=== PATIENT | male | born 1960 | race Asian ===

== ENCOUNTER 2018-12-30 10:16 | Emergency (ER) | payer OTHER ==
[2018-12-30] MEDS: KETOROLAC 60 MG INJ IM (11:58)
[2018-12-30] MEDS: traMADol 50 MG TAB PO (11:59)
[2018-12-30 12:28] LABS: URIC ACID 3.1 mg/dl (3.1-7.9)
== END 2018-12-30 14:10 | disposition home or self-care (01) ==
LOC: FTE 10:16
DX: M25.462 Effusion, left knee (principal); I10 Essential (primary) hypertension; F17.210 Nicotine dependence, cigarettes, uncomplicated
CPT/HCPCS: 73562; 84560; 96372; 99284-25

== ENCOUNTER 2019-03-09 08:53 | Day surgery (SDC) | payer OTHER ==
[2019-03-09] MEDS ORDERED: LIDOCAINE 4% SOLUTION 50 ML BTL (10:08)
[2019-03-09] MEDS ORDERED: FENTAnyl 50 MCG/ML VIAL (10:53)
[2019-03-09] MEDS ORDERED: MIDAZOLAM 1 MG/ML 2 ML INJ ×2 (10:54)
== END 2019-03-09 14:11 | disposition home or self-care (01) ==
LOC: GIL 08:53
DX: R19.5 Other fecal abnormalities (principal); K29.50 Unspecified chronic gastritis without bleeding; K20.8 Other esophagitis
CPT/HCPCS: 43239; 88305; 88312